=== PATIENT | female | born 1980 | race Caucasian/White ===

== ENCOUNTER 2021-06-24 09:04 | Emergency (ER) | payer OTHER ==
[2021-06-24 09:29] VITALS: BP 124/70; PULSE 80; TEMP 98.7; BMI 27.4
[2021-06-24] MEDS ORDERED: ACETAMINOPHEN 500 MG TABLET (FP) PO ONE (09:38)
[2021-06-24] MEDS ORDERED: ACETAMINOPHEN 325 MG TABLET (FP) ONE (09:43)
== END 2021-06-24 10:23 | disposition home or self-care (01) ==
LOC: FER 09:04
DX: M79.602 Pain in left arm (principal)
CPT/HCPCS: 36415; 84146; 84439; 84443; 99283-25